=== PATIENT | male | born 1980 | race Caucasian/White ===

== ENCOUNTER 2019-02-12 00:16 | Emergency (ER) | payer MEDICAID ==
[~2019-02-12] VITALS: Ht 172.7 cm; Wt 92.3 kg
[2019-02-12] MEDS ORDERED: LISINOPRIL2.5 MG PO (00:30)
[2019-02-12] MEDS ORDERED: TRAZODONE HCL50 MG PO (00:31)
[2019-02-12] MEDS ORDERED: ARICEPT10 M1 PO (00:31)
[2019-02-12 02:19] VITALS: BP 104/63
== END 2019-02-12 02:19 | disposition home or self-care (01) ==
LOC: M.ERS 00:16
DX: S01.01XA Laceration without foreign body of scalp, initial encounter (principal); S01.81XA Laceration without foreign body of other part of head, initial encounter; F10.129 Alcohol abuse with intoxication, unspecified; I10 Essential (primary) hypertension; E78.00 Pure hypercholesterolemia, unspecified; W18.39XA Other fall on same level, initial encounter; Y92.009 Unspecified place in unspecified non-institutional (private) residence as the place of occurrence of the external cause; Y93.53 Activity, golf; Y99.8 Other external cause status